=== PATIENT | male | born 1950 | race Hispanic/Latino ===

== ENCOUNTER 2016-08-10 17:23 | Emergency (ER) | payer MEDICARE ==
[2016-08-10 17:55] LABS: BASO % 0.5 % (0.0-2.0); EOS # 0.1 K/uL (0.0-0.7); EOS % 0.9 % (0.0-4.0); LYMPH # 1.4 K/uL (1.0-4.3); LYMPH % 16.2 % (20.0-40.0); MEAN CELL VOLUME 86.6 fL (80.0-94.0); MEAN CORPUSCULAR HEMOGLOBIN 28.7 pg (27.0-31.0); MEAN CORPUSCULAR HGB CONC 33.2 g/dL (33.0-37.0); MEAN PLATELET VOLUME 11.1 fL (7.2-11.7); MONO # 0.8 K/uL (0.0-0.8); MONO % 8.8 % (0.0-10.0); NRBC % 0.1 % (0.0-2.0); RED CELL DISTRIBUTION WIDTH 13.3 % (11.5-14.5); WHITE BLOOD COUNT 8.6 K/uL (4.8-10.8)
--- NOTE | 2016-08-10 17:56 | C.PDOC ---
History Of Present Illness 66 year old patient, with a past medical history hypertension, presents to the emergency department complaining of on and off left lateral chest wall discomfort throughout the day. Patient reports he has a history of GERD. He had 3 cups of coffee with his breakfast today. He knows coffee makes his GERD worse , yet keeps drinking it. The pain is positionally reproducible, but not digitally. His father of an [place]. 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 He reports used the stair climber for 40 minutes this morning. Patient denies any cardiac history, shortness of breath, chest pressure, fever, chills, nausea, vomiting, numbness or weakness. Time Seen by Provider: 08/10/16 17:48 Chief Complaint (Nursing): Chest Pain History Per: Patient History/Exam Limitations: no limitations Onset/Duration Of Symptoms: Intermittent Episodes (throughout today) Current Symptoms Are (Timing): Still Present Context: Other Severity: Mild Pain Scale Rating Of: 3 Quality: "Pain" Alleviating Factors: None Recent travel outside of the [place]: No Past Medical History Reviewed: Historical Data, Nursing Documentation, Vital Signs Vital Signs: Last Vital Signs Temp 97.8 F 08/10/16 19:36 Pulse 66 08/10/16 19:36 Resp 20 08/10/16 19:36 BP 125/78 08/10/16 19:36 Pulse Ox 99 08/10/16 19:36 - Medical History PMH: HTN Surgical History: Tonsillectomy Family History: States: Unknown Family Hx - Social History Hx Alcohol Use: No Hx Substance Use: No - Immunization History Hx Tetanus Toxoid Vaccination: No Hx Influenza Vaccination: Yes Hx Pneumococcal Vaccination: No Review Of Systems Except As Marked, All Systems Reviewed And Found Negative. Constitutional: Negative for: Fever, Chills Respiratory: Negative for: Shortness of Breath Gastrointestinal: Negative for: Nausea, Vomiting Musculoskeletal: Positive for: Other (left lateral chest wall discomfort) Neurological: Negative for: Weakness, Numbness Physical Exam - Physical Exam Appears: Non-toxic, No Acute Distress Skin: Warm, Dry Head: Atraumatic, Normacephalic Oral Mucosa: Moist Neck: Normal ROM, Supple Chest: Symmetrical, Other (left lateral chest discomfort to the mid axillary area (-)rash (-)reproducible) Cardiovascular: Rhythm Regular Respiratory: Normal Breath Sounds, No Rales, No Rhonchi, No Wheezing Gastrointestinal/Abdominal: Soft, No Tenderness Back: Normal Inspection, No CVA Tenderness Extremity: Normal ROM Neurological/Psych: Oriented x3 Gait: Steady ED Course And Treatment - Laboratory Results Result Diagrams: 08/10/16 17:48 08/10/16 18:09 Lab Interpretation: Normal (trop neg.) ECG: Interpreted By Me ECG Rhythm: Sinus Rhythm, R BBB ECG Interpretation: Normal Rate From EC (bpm) O2 Sat by Pulse Oximetry: 98 (room air) Pulse Ox Interpretation: Normal - Radiology CXR: Interpreted by Me CXR Interpretation: Yes: No Acute Disease Progress Note: asa. pepcid, maalox Reevaluation Time: 19:14 Medical Decision Making Medical Decision Making: h/o GERD and 3 cups of coffe for lunch=GERD sees CArdiology but no personal hx- walked 40 min on stairmaster this AM, trop neg, normal EKG. NOT cardiac. Disposition Doctor Will See Patient In The: Office Counseled Patient/Family Regarding: Studies Performed, Diagnosis - Disposition Referrals: [facility] [Outside] Disposition: HOME/ ROUTINE Disposition Time: 19:15 Condition: GOOD Additional Instructions: continue Pepcid 20 mg @ night to lower stomach acid MAalox/TUMS 4-5x/day GERD diet: avoid foods and coffee which make GERD worse Follow-up with your PMD as usual. Your cardiac workup and Chest X-ray are NORMAL today. Instructions: Gastroesophageal Reflux Disease (ED) - Clinical Impression Clinical Impression: Chest discomfort - Scribe Statement The provider has reviewed the documentation as recorded by the Constanceibsara Briones Provider Attestation: All medical record entries made by the Scribe were at my direction and personally dictated by me. I have reviewed the chart and agree that the record accurately reflects my personal performance of the history, physical exam, medical decision making, and the department course for this patient. I have also personally directed, reviewed, and agree with the discharge instructions and disposition.
[2016-08-10 18:05] LABS: INR 1.1
[2016-08-10] MEDS ORDERED: Alum-Mag Hydrox-Simethicone Susp (30 mL) PO STA (18:06)
[2016-08-10] MEDS ORDERED: Aspirin 325 mg EC Tablets PO STA (18:06)
[2016-08-10 18:24] LABS: CHLORIDE 102 mmol/L (98-107); POTASSIUM 3.6 mmol/L (3.6-5.2); SODIUM 138 mmol/L (132-148)
[2016-08-10 18:26] LABS: ALB/GLOB RATIO 1.4 (1.0-2.1); ALKALINE PHOSPHATASE 108 U/L (38-126); AST/SGOT 24 U/L (17-59); BILIRUBIN,TOTAL 0.5 mg/dL (0.2-1.3); BLOOD UREA NITROGEN 29 mg/dL (9-20); CARBON DIOXIDE 22 mmol/L (22-30); GFR AFRICAN-AMERICAN > 60; TOTAL PROTEIN 7.1 g/dL (6.3-8.3)
[2016-08-10 18:27] LABS: ALT/SGPT 52 U/L (21-72); GLUCOSE,RANDOM 98 mg/dL (75-110)
[2016-08-10] MEDS ORDERED: Aluminum Hydroxide/Magnesium Hydroxide Susp (30 mL) ONE (18:37)
[2016-08-10] MEDS ORDERED: Aspirin 325 mg EC Tablets PO ONE (18:37)
[2016-08-10 19:37] VITALS: BP 125/78; PULSE 66; RESP 20; TEMP 97.8
[2016-08-10 19:42] VITALS: O2SAT 98
--- NOTE | 2016-08-11 08:42 | RAD ---
PROCEDURE: CHEST RADIOGRAPH, 1 VIEW HISTORY: Chest pain COMPARISON: None available. FINDINGS: LUNGS: The lungs are well inflated and clear. PLEURA: No pneumothorax or pleural fluid seen. CARDIOVASCULAR: Normal. OSSEOUS STRUCTURES: No significant abnormalities. VISUALIZED UPPER ABDOMEN: Normal. OTHER FINDINGS: None. IMPRESSION: No active pulmonary disease.
--- NOTE | 2016-08-11 10:57 | CARD ---
APPROVED REPORT EKG Measurement Heart [id number] <Conclusion> Sinus rhythm with marked sinus arrhythmia Right bundle branch block Abnormal ECG
== END 2016-08-10 19:36 | disposition home or self-care (01) ==
LOC: C.ER 17:23
DX: R07.89 Other chest pain (principal)